=== PATIENT | female | born 1990 | race Caucasian/White ===

== ENCOUNTER 2019-11-09 11:33 | Inpatient (IN) | payer OTHER ==
[~2019-11-09] VITALS: Ht 149.9 cm; Wt 59.4 kg
[2019-11-09] MEDS ORDERED: PRENATAL TABLE1 EAC1 PO (12:55)
== END 2019-11-16 11:10 | disposition home or self-care (01) | DRG 806 ==
LOC: LDR 11:33 → OB/GYN 11:33
PROVIDERS: ADMIT Obstetrics & Gynecology
PROC: 10E0XZZ Delivery of Products of Conception, External Approach (ICD-10-PCS; principal; 2019-11-09)
PROC: 0KQM0ZZ Repair Perineum Muscle, Open Approach (ICD-10-PCS; 2019-11-09)
PROC: 4A1HXCZ Monitoring of Products of Conception, Cardiac Rate, External Approach (ICD-10-PCS; 2019-11-09)
DX: O70.1 Second degree perineal laceration during delivery (principal); O72.1 Other immediate postpartum hemorrhage; Z37.0 Single live birth; O86.12 Endometritis following delivery; O24.420 Gestational diabetes mellitus in childbirth, diet controlled; Z3A.39 39 weeks gestation of pregnancy; Z22.330 Carrier of Group B streptococcus; B96.29 Other Escherichia coli [E. coli] as the cause of diseases classified elsewhere